=== PATIENT | male | born 1980 | race Two or more races ===

== ENCOUNTER 2018-11-24 00:26 | Emergency (ER) | payer MEDICAID ==
[~2018-11-24] VITALS: Ht 172.7 cm; Wt 91.0 kg
[2018-11-24] MEDS ORDERED: KETOROLAC 60MG/2ML VIAL IM ONE (01:30)
[2018-11-24 03:19] VITALS: BP 129/79
== END 2018-11-24 03:21 | disposition home or self-care (01) ==
LOC: ER 00:26
DX: S39.012A Strain of muscle, fascia and tendon of lower back, initial encounter (principal); R51 Headache; M54.2 Cervicalgia; F17.210 Nicotine dependence, cigarettes, uncomplicated; Z98.890 Other specified postprocedural states; V43.52XA Car driver injured in collision with other type car in traffic accident, initial encounter; Y93.89 Activity, other specified; Y92.488 Other paved roadways as the place of occurrence of the external cause
CPT/HCPCS: 72040; 72100; 96372; 99283; J1885

== ENCOUNTER 2019-12-07 20:12 | Emergency (ER) | payer MEDICAID ==
[~2019-12-07] VITALS: Ht 172.7 cm; Wt 78.0 kg
[2019-12-07] MEDS ORDERED: LIDOCAINE HCL 1% 20ML VIAL (Pyxis) INJ INFIL ONE (21:15)
[2019-12-07] MEDS ORDERED: CEFTRIAXONE SODIUM 1 G/VIAL IM ONE (21:15)
[2019-12-07] MEDS ORDERED: DEXAMETHASONE 4MG/ML 1ML VIAL IM ONE (21:15)
[2019-12-07 21:30] VITALS: BP 129/93
== END 2019-12-07 21:50 | disposition home or self-care (01) ==
LOC: ER 20:12
DX: J03.90 Acute tonsillitis, unspecified (principal)
CPT/HCPCS: 87070; 87430; 96372; 99284; J0696; J1100; J3490

== ENCOUNTER 2021-05-15 17:25 | Emergency (ER) | payer MEDICAID ==
[~2021-05-15] VITALS: Ht 172.7 cm; Wt 127.0 kg
[~2021-05-15 17:25] MED LIST: DEXT15SY3 PO; LORA10CA MT
[2021-05-15] MEDS ORDERED: KETOROLAC 60MG/2ML VIAL IM STA (17:35)
[2021-05-15 19:03] VITALS: BP 151/79
[2021-05-15] MEDS ORDERED: IBUP-2029 MT (19:05)
== END 2021-05-15 19:35 | disposition home or self-care (01) ==
LOC: ER 17:25
DX: S82.831A Other fracture of upper and lower end of right fibula, initial encounter for closed fracture (principal); Z90.49 Acquired absence of other specified parts of digestive tract; W01.0XXA Fall on same level from slipping, tripping and stumbling without subsequent striking against object, initial encounter; Y93.89 Activity, other specified; Y92.018 Other place in single-family (private) house as the place of occurrence of the external cause
CPT/HCPCS: 29515; 73610; 96372; 99283; J1885